=== PATIENT | male | born 1980 | race Caucasian/White ===

== ENCOUNTER 2017-09-16 00:21 | Emergency (ER) | payer SELFPAY ==
[~2017-09-16] VITALS: Ht 180.3 cm; Wt 68.0 kg
[2017-09-16 00:29] VITALS: BP 142/81; PULSE 83; RESP 16; TEMP 97.7; O2SAT 98
--- NOTE | 2017-09-16 01:36 | PD ---
HPI Chief Complaint: Altered Mental Status Time Seen by Provider: 01:22 Travel History International Travel<30 days: No Contact w/Intl Traveler<30days: No Traveled to known affect area: No History of Present Illness HPI 37yo M with unknown PMH [place]. As per triage note, pt reports feeling confused and unsure of last time he was able to sleep. Easily arousable to light touch. Pt was brought to the medical room after about an hour and was sound asleep when I went in. I was able to arouse him and he told me his name and where he is. Pt did follow commands but went back to sleep when I ask him when he is here. Unable to obtain a good history. There are multiple skin markings on him but he did not answer me when I ask about drugs. PFSH Past Medical History Medical History: Denies Significant Hx Influenza Vaccination: No Past Surgical History Surgical History: No Previous Surgery Social History Alcohol Use: No Tobacco Use: Yes Substance Use: Yes Allergies-Medications (Allergen,Severity, Reaction): Coded Allergies: No Known Allergies (Unverified , 09/16/17) Reported Meds & Prescriptions Reported Meds & Active Scripts Active No Active Prescriptions or Reported Medications Review of Systems Except as stated in HPI: all other systems reviewed are Neg Physical Exam Narrative GENERAL: 37yo M not in distress. SKIN: Focused skin assessment warm/dry. HEAD: Atraumatic. Normocephalic. EYES: Pupils equal and round. No scleral icterus. No injection or drainage. ENT: No nasal bleeding or discharge. Mucous membranes pink and moist. NECK: Trachea midline. No JVD. CARDIOVASCULAR: Regular rate and rhythm. No murmur appreciated. RESPIRATORY: No accessory muscle use. Clear to auscultation. Breath sounds equal bilaterally. GASTROINTESTINAL: Abdomen soft, non-tender, nondistended. MUSCULOSKELETAL: No obvious deformities. No clubbing. No cyanosis. No edema. NEUROLOGICAL: Sleepy but arousable. Moves all extremities. Data Data Last Documented VS Vital Signs Date Time Temp Pulse Resp B/P (MAP) Pulse Ox O2 Delivery O2 Flow Rate FiO2 09/16/17 07:48 74 18 150/69 (96) 99 Room Air 09/16/17 00:29 97.7 Orders Orders Ammonia (09/16/17 01:30) Basic Metabolic Panel (Bmp) (09/16/17 01:30) Complete Blood Count With Diff (09/16/17 01:30) Creatine Kinase (Cpk) (09/16/17 01:30) Thyroid Stimulating Hormone (09/16/17 01:30) Ct Brain W/O Iv Contrast(Rout) (09/16/17 01:30) Drug Screen, Random Urine (09/16/17 01:36) Salicylates (Aspirin) (09/16/17 01:36) Tylenol (Acetaminophen) (09/16/17 01:30) Alcohol (Ethanol) (09/16/17 01:30) Sodium Chlor 0.9% 1000 Ml Inj (Ns 1000 M (09/16/17 06:00) Lactulose Liq (Lactulose Liq) (09/16/17 06:00) Ed Discharge Order (09/16/17 11:13) Labs Laboratory Tests Test 09/16/17 01:54 White Blood Count 14.5 TH/MM3 Red Blood Count 4.30 MIL/MM3 Hemoglobin 13.1 GM/DL Hematocrit 38.0 % Mean Corpuscular Volume 88.4 FL Mean Corpuscular Hemoglobin 30.5 PG Mean Corpuscular Hemoglobin Concent 34.4 % Red Cell Distribution Width 13.9 % Platelet Count 343 TH/MM3 Mean Platelet Volume 7.8 FL Neutrophils (%) (Auto) 75.6 % Lymphocytes (%) (Auto) 16.1 % Monocytes (%) (Auto) 6.0 % Eosinophils (%) (Auto) 2.0 % Basophils (%) (Auto) 0.3 % Neutrophils # (Auto) 11.0 TH/MM3 Lymphocytes # (Auto) 2.3 TH/MM3 Monocytes # (Auto) 0.9 TH/MM3 Eosinophils # (Auto) 0.3 TH/MM3 Basophils # (Auto) 0.0 TH/MM3 CBC Comment DIFF FINAL Differential Comment Blood Urea Nitrogen 18 MG/DL Creatinine 0.76 MG/DL Random Glucose 85 MG/DL Calcium Level 8.9 MG/DL Sodium Level 138 MEQ/L Potassium Level 3.9 MEQ/L Chloride Level 104 MEQ/L Carbon Dioxide Level 27.5 MEQ/L Anion Gap 7 MEQ/L Estimat Glomerular Filtration Rate 117 ML/MIN Ammonia 45 MCMOL/L Total Creatine Kinase 220 U/L Thyroid Stimulating Hormone 3rd Gen 0.975 uIU/ML Salicylates Level LESS THAN 1.7 MG/DL Acetaminophen Level LESS THAN 2.0 MCG/ML Ethyl Alcohol Level LESS THAN 3 MG/DL MDM Medical Decision Making Medical Screen Exam Complete: Yes Emergency Medical Condition: Yes Differential Diagnosis Drug use vs. electrolyte abnormality vs. ICH Narrative Course 37yo M was brought in [place]. Pt is sleeping but easily arousable and answers some question. Moves all extremities. Labs reviewed, mild leukocytosis at 14.5. Ammonia level mildly elevated at 45. TSH normal. BMP unremarkable. Alcohol negative. Acetaminophen and salicylate negative. CT brain negative. Pt given NS IVF. Drug screen pending. Feel that this is likely drug related but pt needs to be more sober before reevaluation and likely discharge. Sign out to next team to reevaluate when sober. Diagnosis Primary Impression: Drug use Scripts No Active Prescriptions or Reported Meds Romana Spencer DO Sep 16, 2017 01:36
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
[2017-09-16 03:36] LABS: BASOPHIL % 0.3 % (0.0-2.0); EOSINOPHIL # 0.3 TH/MM3 (0-0.4); HEMOGLOBIN 13.1 GM/DL (13.0-17.0); LYMPH % 16.1 % (9.0-44.0); LYMPHOCYTE # 2.3 TH/MM3 (1.0-4.8); MEAN CELL VOLUME 88.4 FL (80.0-100.0); MEAN CORPUSCULAR HEMOGLOBIN 30.5 PG (27.0-34.0); MEAN CORPUSCULAR HGB CONC 34.4 % (32.0-36.0); MEAN PLATELET VOLUME 7.8 FL (7.0-11.0); MONOCYTE # 0.9 TH/MM3 (0-0.9); NEUT % 75.6 % (16.0-70.0); PLATELET COUNT 343 TH/MM3 (150-450); RED CELL DISTRIBUTION WIDTH 13.9 % (11.6-17.2); WHITE BLOOD COUNT 14.5 TH/MM3 (4.0-11.0)
[2017-09-16 04:08] LABS: BICARBONATE 27.5 MEQ/L (21.0-32.0); BLOOD UREA NITROGEN 18 MG/DL (7-18); CALCIUM 8.9 MG/DL (8.5-10.1); CHLORIDE 104 MEQ/L (98-107); CREATININE 0.76 MG/DL (0.60-1.30); GLOMERULAR FILTRATION RATE 117 ML/MIN (>89); GLUCOSE,RANDOM 85 MG/DL (74-106); SODIUM (NA) 138 MEQ/L (136-145)
[2017-09-16 04:19] LABS: ACETAMINOPHEN LESS THAN 2.0 MCG/ML (10.0-30.0)
[2017-09-16] MEDS ORDERED: LACTULOSE SYRUP 20 GM/30 ML CUP PO ONE (06:00)
[2017-09-16] MEDS ORDERED: SODIUM CHLOR 0.9% 1000 ML INJ 1,000 ML IV ONE (06:00)
[2017-09-16 06:25] VITALS: BP 119/74; PULSE 71; RESP 16; O2SAT 99
[2017-09-16 07:48] VITALS: BP 150/69; PULSE 74; RESP 18; O2SAT 99
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
== END 2017-09-16 11:21 | disposition home or self-care (01) ==
LOC: NEPC 00:21
DX: F19.90 Other psychoactive substance use, unspecified, uncomplicated (principal); Z72.0 Tobacco use
CPT/HCPCS: 70450; 80048; 80307; 82140; 82550; 84443; 85025; 96360; 96361; 99284; J7030